=== PATIENT | female | born 1980 | race African-American/Black ===

== ENCOUNTER 2019-06-03 21:03 | Inpatient (IN) | payer MEDICAID ==
[~2019-06-03] VITALS: Ht 172.7 cm; Wt 54.9 kg
[~2019-06-03 21:03] MED LIST: KEPRA PO; PHEN100C4 PO
[2019-06-03] MEDS ORDERED: ONDANSETRON 4MG ODT PO ONE (23:15)
[2019-06-03] MEDS ORDERED: ACETAMINOPHEN 325MG TABLET PO ONE (23:15)
[2019-06-04] MEDS ORDERED: METOCLOPRAMIDE HCL 10MG/2ML VIAL IV ONE (00:15)
[2019-06-04] MEDS ORDERED: SODIUM CHLORIDE 0.9% 1,000 ML IV ONE ×2 (00:15→01:45)
[2019-06-04 00:19] LABS: HEMATOCRIT. 49.7 % (36.0-48.0); HEMOGLOBIN. 15.8 g/dL (12.0-16.0); MEAN CORPUSCULAR HEMOGLOBIN 35.5 pg (28.0-32.0); MEAN CORPUSCULAR VOLUME 111.5 fL (81.0-99.0); MEAN PLATELET VOLUME 8.8 fl (7.4-10.4); PLATELET 297 x1000/uL (130-400); RED BLOOD CELL COUNT 4.46 mill/uL (4.2-5.4); RED CELL DISTRIBUTION WIDTH 15.8 % (11.6-14.6)
[2019-06-04 00:26] LABS: HCG SCREEN NEGATIVE
[2019-06-04 00:28] LABS: CHLORIDE 103 mEq/L (98-107)
[2019-06-04 01:18] LABS: PLATELET ESTIMATE NORMAL
[2019-06-04 01:44] LABS: CLARITY URINE CLEAR (CLEAR); COLOR URINE YELLOW (YELLOW); KETONES URINE 4+ (NEGATIVE); LEUKOCYTE ESTERASE URINE NEGATIVE (NEGATIVE); NITRITE URINE NEGATIVE (NEGATIVE); OCCULT BLOOD URINE 1+ (NEGATIVE); PROTEIN URINE 3+ (NEGATIVE); SPECIFIC GRAVITY URINE 1.018 (1.005-1.030); UROBILINOGEN URINE 0.2 E.U./dL (0.2-1.0)
[2019-06-04] MEDS ORDERED: PHENYTOIN SODIUM EXTENDED 100MG CAPSULE PO ONE (01:45)
[2019-06-04] MEDS ORDERED: LEVETIRACETAM 500MG PREMIX 100 ML IV ONE ×2 (02:15)
[2019-06-04 02:33] LABS: CHLORIDE 102 mEq/L (98-107)
[2019-06-04 02:40] LABS: BETA HYDROXYBUTYRATE 7.9 mMol/L (0.0-0.3)
[2019-06-04] MEDS ORDERED: IOHEXOL-300 100 ML BOTTLE ONE (07:01)
[2019-06-04 08:01] LABS: BG BASE EXCESS -15.7 mmol/L (-2.0-2.0); BG CARBOXYHEMOGLOBIN 0.6 % (0.5-1.5); BG DEOXYHEMOGLOBIN 1.7 % (0.0-5.0); BG FRACTION INSPIRED OXYGEN 21; BG HCO3 ACT 9.2 mmol/L (22.0-26.0); BG METHEMOGLOBIN 0.3 % (0.0-1.5); BG OXYGEN SATURATION 98.3 % (92.0-98.5); BG OXYHEMOGLOBIN 97.4 % (94.0-97.0); BG PCO2 20.8 mmHg (35.0-45.0); BG PH 7.262 (7.350-7.450); BG PO2 113.6 mmHg (75.0-100.0); BG SAMPLE SITE RIGHT RADIAL; BG TOTAL HEMOGLOBIN 13.5 g/dL (12.0-18.0); BG VENT MODE ROOM AIR
[2019-06-04] MEDS ORDERED: SODIUM CHLORIDE 0.9% 1,000 ML IV SCH (09:22)
[2019-06-04] MEDS ORDERED: ONDANSETRON HCL 4MG/2ML INJ IV PRN (09:30)
[2019-06-04] MEDS ORDERED: CLONIDINE 0.1MG TABLET PO PRN (09:30)
[2019-06-04] MEDS ORDERED: IPRATROPIUM/ALBUTEROL 0.5-3(2.5)MG/3ML NEB HHN PRN (09:30)
[2019-06-04] MEDS ORDERED: DIPHENHYDRAMINE 50MG/ML VIAL IV PRN (09:30)
[2019-06-04] MEDS ORDERED: SODIUM BICARBONATE 8.4% 1 MEQ/ML 50ML SYR IV STA (11:00)
[2019-06-04] MEDS: SODIUM BICARBONATE 100 MEQ in SODIUM CHLORIDE 0.45% 1,000 ML IV SCH ×2 (12:30→20:48)
[2019-06-04 15:08] LABS: CREATINE KINASE MB FRACTION 1.9 ng/mL (0.5-3.6)
[2019-06-04 17:28] VITALS: BP 141/102
[2019-06-04 17:38] LABS: BG BASE EXCESS -6.9 mmol/L (-2.0-2.0); BG DEOXYHEMOGLOBIN 1.5 % (0.0-5.0); BG FRACTION INSPIRED OXYGEN 21; BG HCO3 ACT 16.2 mmol/L (22.0-26.0); BG METHEMOGLOBIN 0.2 % (0.0-1.5); BG OXYGEN SATURATION 98.5 % (92.0-98.5); BG OXYHEMOGLOBIN 97.3 % (94.0-97.0); BG PCO2 26.7 mmHg (35.0-45.0); BG PH 7.401 (7.350-7.450); BG PO2 105.2 mmHg (75.0-100.0); BG SAMPLE SITE RIGHT RADIAL; BG TOTAL HEMOGLOBIN 13.9 g/dL (12.0-18.0); BG VENT MODE ROOM AIR
[2019-06-04 18:00] VITALS: BP 141/101
[2019-06-04 18:13] VITALS: BP 141/101
[2019-06-04] MEDS ORDERED: KEPP500 PO (18:26)
[2019-06-04] MEDS: CITRIC ACID/SODIUM CITRATE SOLN 30ML UDC PO SCH (18:36)
[2019-06-04] MEDS: ENOXAPARIN 40MG/0.4ML SYR SUBCUT SCH (18:38)
[2019-06-04 19:35] LABS: CHLORIDE 105 mEq/L (98-107)
[2019-06-04 23:32] LABS: CREATINE KINASE MB FRACTION 1.3 ng/mL (0.5-3.6)
[2019-06-05] MEDS: LEVETIRACETAM 500MG PREMIX 100 ML IV SCH ×3 (00:57→21:50)
[2019-06-05] MEDS: CHLORDIAZEPOXIDE 25MG CAPSULE PO SCH ×4 (00:57→21:50)
[2019-06-05 06:37] LABS: BASOPHILS % 0.4 % (0.0-2.0); EOSINOPHILS % 0.2 % (0.0-5.0); HEMATOCRIT. 33.7 % (36.0-48.0); HEMOGLOBIN. 11.7 g/dL (12.0-16.0); LYMPHOCYTES % 28.2 % (20.0-50.0); MEAN CORPUSCULAR HEMOGLOBIN 36.2 pg (28.0-32.0); MEAN CORPUSCULAR VOLUME 104.6 fL (81.0-99.0); MONOCYTES % 11.2 % (2.0-8.0); PLATELET 196 x1000/uL (130-400); RED BLOOD CELL COUNT 3.22 mill/uL (4.2-5.4); RED CELL DISTRIBUTION WIDTH 15.2 % (11.6-14.6)
[2019-06-05 06:43] LABS: CHLORIDE 104 mEq/L (98-107)
[2019-06-05 07:06] LABS: LDL CHOLESTEROL 123 mg/dL (5-100)
[2019-06-05 07:08] LABS: HDL CHOLESTEROL 66 mg/dL (40-59)
[2019-06-05] MEDS ORDERED: POTASSIUM CHLORIDE 20MEQ TABLET SR PO NR (07:30)
[2019-06-05 08:00] VITALS: BP 135/100
[2019-06-05] MEDS: PHENYTOIN SODIUM EXTENDED 100MG CAPSULE PO SCH (08:35)
[2019-06-05] MEDS: CITRIC ACID/SODIUM CITRATE SOLN 30ML UDC PO SCH ×3 (08:35→17:18)
[2019-06-05] MEDS: SODIUM CHLORIDE 0.45% 1,000 ML IV SCH (08:40)
[2019-06-05 12:00] VITALS: BP 112/87
[2019-06-05 16:00] VITALS: BP 120/79
[2019-06-05] MEDS: ENOXAPARIN 40MG/0.4ML SYR SUBCUT SCH (17:18)
[2019-06-05 20:00] VITALS: BP 127/94
[2019-06-06] VITALS: BP 107/84
[2019-06-06 04:00] VITALS: BP 110/88
[2019-06-06] MEDS: CHLORDIAZEPOXIDE 25MG CAPSULE PO SCH ×2 (06:29→13:18)
[2019-06-06] MEDS: SODIUM CHLORIDE 0.45% 1,000 ML IV SCH (06:35)
[2019-06-06 07:04] LABS: BASOPHILS % 0.4 % (0.0-2.0); EOSINOPHILS % 0.5 % (0.0-5.0); HEMATOCRIT. 35.2 % (36.0-48.0); HEMOGLOBIN. 12.1 g/dL (12.0-16.0); LYMPHOCYTES % 37.8 % (20.0-50.0); MEAN CORPUSCULAR HEMOGLOBIN 36.5 pg (28.0-32.0); MEAN CORPUSCULAR VOLUME 106.1 fL (81.0-99.0); MEAN PLATELET VOLUME 8.9 fl (7.4-10.4); MONOCYTES % 13.9 % (2.0-8.0); NEUTROPHILS % 47.4 % (40.0-76.0); PLATELET 212 x1000/uL (130-400); RED BLOOD CELL COUNT 3.31 mill/uL (4.2-5.4); RED CELL DISTRIBUTION WIDTH 15.4 % (11.6-14.6)
[2019-06-06 07:10] LABS: CHLORIDE 105 mEq/L (98-107)
[2019-06-06 08:00] VITALS: BP 114/89
[2019-06-06] MEDS ORDERED: POTASSIUM CHLORIDE 20MEQ TABLET SR PO ONE (08:30)
[2019-06-06] MEDS: PHENYTOIN SODIUM EXTENDED 100MG CAPSULE PO SCH (08:58)
[2019-06-06] MEDS: CITRIC ACID/SODIUM CITRATE SOLN 30ML UDC PO SCH ×3 (08:58→16:47)
[2019-06-06] MEDS: LEVETIRACETAM 500MG PREMIX 100 ML IV SCH (08:58)
[2019-06-06] MEDS ORDERED: POTASSIUM CHLORIDE INJ 40 MEQ in DEXT 5% WATER 250 ML IV ONE (09:00)
[2019-06-06 12:00] VITALS: BP 117/90
[2019-06-06 16:00] VITALS: BP 110/87
[2019-06-06 17:54] VITALS: BP 116/87
[2019-06-06] MEDS ORDERED: POTASSIUM CHLORIDE 20MEQ TABLET SR PO NR (18:00)
== END 2019-06-06 19:00 | disposition home or self-care (01) | DRG 249 ==
LOC: ER 21:03 → 7WST 06-04 06:59 → CANRESERV 06-04 14:53 → ENRESERV 06-04 14:53
PROVIDERS: ADMIT Internal Medicine; ATTEND Internal Medicine
DX: A08.4 Viral intestinal infection, unspecified (principal); E87.2 Acidosis; E87.1 Hypo-osmolality and hyponatremia; E87.5 Hyperkalemia; F12.90 Cannabis use, unspecified, uncomplicated; F17.210 Nicotine dependence, cigarettes, uncomplicated; G40.909 Epilepsy, unspecified, not intractable, without status epilepticus; F10.229 Alcohol dependence with intoxication, unspecified; Y90.9 Presence of alcohol in blood, level not specified; Z79.899 Other long term (current) drug therapy
CPT/HCPCS: 36415; 36600; 74177; 76700; 80048; 80053; 80061; 80185; 81003; 82010; 82375; 82550; 82553; 82805; 83605; 84132; 84443; 84703; 85025; 93970; J1650; J1953; J2765; J3480; J3490; J7030; J7060; Q0162; Q9967

== ENCOUNTER 2020-05-22 11:39 | Emergency (ER) | payer MEDICAID ==
[~2020-05-22] VITALS: Ht 170.2 cm; Wt 60.0 kg
[~2020-05-22 11:39] MED LIST changes: +KEPP500 PO; -KEPRA PO
[2020-05-22] MEDS ORDERED: LEVETIRACETAM 1000MG PREMIX 100 ML IV ONE (12:30)
[2020-05-22 12:53] LABS: BASOPHILS % 0.4 % (0.0-2.0); EOSINOPHILS % 0.2 % (0.0-5.0); HEMATOCRIT. 32.7 % (36.0-48.0); HEMOGLOBIN. 10.9 g/dL (12.0-16.0); LYMPHOCYTES % 23.4 % (20.0-50.0); MEAN CORPUSCULAR HEMOGLOBIN 32.7 pg (28.0-32.0); MEAN CORPUSCULAR VOLUME 97.8 fL (81.0-99.0); MONOCYTES % 6.6 % (2.0-8.0); NEUTROPHILS % 69.4 % (40.0-76.0); PLATELET 167 x1000/uL (130-400); RED BLOOD CELL COUNT 3.35 mill/uL (4.2-5.4); RED CELL DISTRIBUTION WIDTH 18.2 % (11.6-14.6)
[2020-05-22 13:04] LABS: CHLORIDE 102 mEq/L (98-107)
[2020-05-22 13:08] LABS: ETHANOL BLOOD < 10 mg/dL
[2020-05-22 15:07] VITALS: BP 110/83
== END 2020-05-22 15:08 | disposition home or self-care (01) ==
LOC: ER 11:43
DX: G40.909 Epilepsy, unspecified, not intractable, without status epilepticus (principal); Z91.14 Patient's other noncompliance with medication regimen; R03.0 Elevated blood-pressure reading, without diagnosis of hypertension; D64.9 Anemia, unspecified; E87.6 Hypokalemia
CPT/HCPCS: 36415; 80053; 80185; 80320; 85025; 93005; 96365; 99284; J1953; Z7610; G0480

== ENCOUNTER 2021-03-31 10:53 | Emergency (ER) | payer MEDICAID ==
[~2021-03-31] VITALS: Ht 165.1 cm; Wt 66.0 kg
[~2021-03-31 10:53] MED LIST changes: +FAMO20TA8 PO; +FOLI-43 PO; +L25 PO; +THIA100T72 PO; +TOPUD PO
[2021-03-31] MEDS ORDERED: LEVETIRACETAM 1000MG PREMIX 100 ML IV ONE (11:15)
[2021-03-31 11:25] LABS: BASOPHILS % 0.8 % (0.0-2.0); EOSINOPHILS % 0.2 % (0.0-5.0); HEMATOCRIT. 34.3 % (36.0-48.0); HEMOGLOBIN. 11.1 g/dL (12.0-16.0); MEAN CORPUSCULAR HEMOGLOBIN 34.4 pg (28.0-32.0); MEAN CORPUSCULAR VOLUME 106.1 fL (81.0-99.0); MEAN PLATELET VOLUME 7.8 fl (7.4-10.4); PLATELET 508 x1000/uL (130-400); RED BLOOD CELL COUNT 3.23 mill/uL (4.2-5.4)
[2021-03-31 11:33] LABS: CHLORIDE 101 mEq/L (98-107)
[2021-03-31] MEDS ORDERED: LORAZEPAM 2MG/ML CPJ IV ONE (13:30)
[2021-03-31] MEDS ORDERED: ACETAMINOPHEN 325MG TABLET PO ONE (14:30)
[2021-03-31 15:35] VITALS: BP 145/89
[2021-03-31] MEDS ORDERED: KEPP500 PO (15:39)
== END 2021-03-31 16:48 | disposition home or self-care (01) ==
LOC: ER 10:53
DX: R56.9 Unspecified convulsions (principal); Z91.14 Patient's other noncompliance with medication regimen; F12.10 Cannabis abuse, uncomplicated; Z79.899 Other long term (current) drug therapy
CPT/HCPCS: 36415; 80053; 85025; 93005; 96374; 99284; J1953

== ENCOUNTER 2021-06-27 09:01 | Inpatient (IN) | payer MEDICAID ==
[~2021-06-27] VITALS: Ht 167.6 cm; Wt 58.5 kg
[2021-06-27] VITALS (17 sets, daily range): BP systolic 122–180; BP diastolic 70–127
[2021-06-27] MEDS ORDERED: ACETAMINOPHEN 325MG TABLET PO STA (09:34)
[2021-06-27] MEDS ORDERED: SODIUM CHLORIDE 0.9% 1,000 ML IV ONE (09:45)
[2021-06-27 10:15] LABS: CHLORIDE 103 mEq/L (98-107)
[2021-06-27 10:20] LABS: ETHANOL BLOOD 15 mg/dL
[2021-06-27 10:21] LABS: BASOPHILS % 0.6 % (0.0-2.0); EOSINOPHILS % 0.4 % (0.0-5.0); HEMATOCRIT. 32.7 % (36.0-48.0); HEMOGLOBIN. 11.4 g/dL (12.0-16.0); LYMPHOCYTES % 23.5 % (20.0-50.0); MEAN CORPUSCULAR HEMOGLOBIN 36.8 pg (28.0-32.0); MEAN CORPUSCULAR VOLUME 105.6 fL (81.0-99.0); MONOCYTES % 9.9 % (2.0-8.0); NEUTROPHILS % 65.6 % (40.0-76.0); PLATELET 286 x1000/uL (130-400); RED BLOOD CELL COUNT 3.09 mill/uL (4.2-5.4); RED CELL DISTRIBUTION WIDTH 20.3 % (11.6-14.6)
[2021-06-27 10:30] LABS: HCG SCREEN NEGATIVE
[2021-06-27 10:50] LABS: CARBAMAZEPINE < 0.5 ug/mL (4-12); PHENOBARBITAL < 2.1 ug/mL (15.0-40.0); VALPROIC ACID < 3.0 ug/mL (50-100)
[2021-06-27] MEDS ORDERED: PHENYTOIN SODIUM 1,000 MG in SODIUM CHLORIDE 0.9% 100 ML IV ONE (11:00)
[2021-06-27] MEDS: DEXT 5%/LACTATED RINGERS 1,000 ML IV SCH ×2 (13:00→17:33)
[2021-06-27] MEDS ORDERED: LEVETIRACETAM 500MG PREMIX 100 ML IV SCH (13:00)
[2021-06-27] MEDS ORDERED: LEVETIRACETAM 500 MG in SODIUM CHLORIDE 0.9% 100 ML IV SCH (13:00)
[2021-06-27] MEDS: ONDANSETRON HCL 4MG/2ML INJ IV PRN (14:01)
[2021-06-27 15:36] LABS: CLARITY URINE CLOUDY (CLEAR); COLOR URINE YELLOW (YELLOW); KETONES URINE 2+ (NEGATIVE); LEUKOCYTE ESTERASE URINE NEGATIVE (NEGATIVE); NITRITE URINE POSITIVE (NEGATIVE); OCCULT BLOOD URINE NEGATIVE (NEGATIVE); PH URINE 6.5 (4.5-8.0); PROTEIN URINE 1+ (NEGATIVE); SPECIFIC GRAVITY URINE 1.022 (1.005-1.030)
[2021-06-27 16:47] LABS: *AMPHETAMINES SCREEN URINE NEGATIVE (NEGATIVE)
[2021-06-27 16:48] LABS: *BENZODIAZEPINES SCREEN URINE NEGATIVE (NEGATIVE); *COCAINE SCREEN URINE NEGATIVE (NEGATIVE); OPIATES URINE SCREEN NEGATIVE (NEGATIVE); PHENCYCLIDINE URINE SCREEN NEGATIVE (NEGATIVE)
[2021-06-27 16:49] LABS: METHADONE URINE SCREEN NEGATIVE (NEGATIVE)
[2021-06-27] MEDS ORDERED: NALOXONE HCL 0.4MG/ML VIAL IV PRN (17:00)
[2021-06-27] MEDS ORDERED: NICARDIPINE 100 MG in SODIUM CHLORIDE 0.9% 60 ML IV PRN (17:00)
[2021-06-27] MEDS: MORPHINE SULFATE 2 MG/ML CPJ (NOT FOR IM USE) IV PRN (17:32)
[2021-06-27] MEDS ORDERED: CEFTRIAXONE 1 G PREMIX 50 ML IV SCH (18:00)
[2021-06-27 18:11] LABS: PROTHROMBIN TIME 10.9 sec (9.6-11.0)
[2021-06-27] MEDS ORDERED: POTASSIUM CHLORIDE INJ 40 MEQ in DEXT 5% WATER 250 ML IV ONE (18:15)
[2021-06-27] MEDS: CEFTRIAXONE 1,000 MG in DEXTROSE 5% WATER 50 ML IV SCH (18:38)
[2021-06-27] MEDS: KCL 20MEQ/100ML X 2 FOR TOTAL KCL 40MEQ/200ML IV SCH ×2 (20:16→20:17)
[2021-06-27] MEDS: LEVETIRACETAM 500MG PREMIX 100 ML IV SCH (20:19)
[2021-06-27 21:03] LABS: *BARBITURATES SCREEN URINE NEGATIVE (NEGATIVE); CANNABINOID URINE SCREEN PRESUMTIVE POSITIVE (NEGATIVE)
[2021-06-27] MEDS: PHENYTOIN SODIUM 100MG/2ML VIAL IV SCH (23:19)
[2021-06-28] VITALS (36 sets, daily range): BP systolic 101–150; BP diastolic 39–104
[2021-06-28 05:29] LABS: BASOPHILS % 0.2 % (0.0-2.0); EOSINOPHILS % 0.1 % (0.0-5.0); HEMATOCRIT. 36.6 % (36.0-48.0); HEMOGLOBIN. 12.4 g/dL (12.0-16.0); LYMPHOCYTES % 15.2 % (20.0-50.0); MEAN CORPUSCULAR HEMOGLOBIN 35.8 pg (28.0-32.0); MEAN CORPUSCULAR VOLUME 105.7 fL (81.0-99.0); MEAN PLATELET VOLUME 8.5 fl (7.4-10.4); MONOCYTES % 9.8 % (2.0-8.0); NEUTROPHILS % 74.7 % (40.0-76.0); PLATELET 288 x1000/uL (130-400); RED BLOOD CELL COUNT 3.46 mill/uL (4.2-5.4); RED CELL DISTRIBUTION WIDTH 20.4 % (11.6-14.6)
[2021-06-28 05:37] LABS: CHLORIDE 97 mEq/L (98-107)
[2021-06-28] MEDS: PHENYTOIN SODIUM 100MG/2ML VIAL IV SCH (05:38)
[2021-06-28] MEDS: LEVETIRACETAM 500MG PREMIX 100 ML IV SCH ×2 (09:44→20:47)
[2021-06-28] MEDS: MORPHINE SULFATE 2 MG/ML CPJ (NOT FOR IM USE) IV PRN ×3 (09:45→18:04)
[2021-06-28] MEDS ORDERED: POTASSIUM CHLORIDE 20MEQ TABLET SR PO NR (10:45)
[2021-06-28] MEDS: AMLODIPINE 10MG TABLET PO SCH (11:51)
[2021-06-28] MEDS: ONDANSETRON HCL 4MG/2ML INJ IV PRN (12:03)
[2021-06-28] MEDS: PHENYTOIN SODIUM EXTENDED 100MG CAPSULE PO SCH ×2 (13:49→22:06)
[2021-06-28] MEDS: CEFTRIAXONE 1,000 MG in DEXTROSE 5% WATER 50 ML IV SCH (18:03)
[2021-06-28] MEDS ORDERED: GADOTERATE MEGLUMINE 5 MMOL/10 ML VIAL IV ONE (19:50)
[2021-06-28] MEDS: DEXT 5%/LACTATED RINGERS 1,000 ML IV SCH (20:48)
[2021-06-29] VITALS (16 sets, daily range): BP systolic 111–159; BP diastolic 65–98
[2021-06-29] MEDS: MORPHINE SULFATE 2 MG/ML CPJ (NOT FOR IM USE) IV PRN ×2 (03:18→10:04)
[2021-06-29 06:00] LABS: CHLORIDE 99 mEq/L (98-107)
[2021-06-29] MEDS: PHENYTOIN SODIUM EXTENDED 100MG CAPSULE PO SCH ×3 (06:24→21:09)
[2021-06-29 08:37] LABS: BASOPHILS % 0.3 % (0.0-2.0); EOSINOPHILS % 0.1 % (0.0-5.0); HEMATOCRIT. 37.2 % (36.0-48.0); HEMOGLOBIN. 12.5 g/dL (12.0-16.0); LYMPHOCYTES % 18.1 % (20.0-50.0); MEAN CORPUSCULAR HEMOGLOBIN 36.1 pg (28.0-32.0); MEAN CORPUSCULAR VOLUME 107.2 fL (81.0-99.0); MEAN PLATELET VOLUME 9.1 fl (7.4-10.4); MONOCYTES % 7.4 % (2.0-8.0); NEUTROPHILS % 74.1 % (40.0-76.0); PLATELET 256 x1000/uL (130-400); RED BLOOD CELL COUNT 3.47 mill/uL (4.2-5.4); RED CELL DISTRIBUTION WIDTH 20.3 % (11.6-14.6)
[2021-06-29] MEDS: LEVETIRACETAM 500MG PREMIX 100 ML IV SCH ×2 (09:57→21:09)
[2021-06-29] MEDS: AMLODIPINE 10MG TABLET PO SCH (09:57)
[2021-06-29] MEDS ORDERED: CLONIDINE 0.1MG TABLET PO PRN (11:00)
[2021-06-29] MEDS ORDERED: POTASSIUM CHLORIDE 20MEQ TABLET SR PO SCH (11:00)
[2021-06-29] MEDS: MULTIVITAMINS,THER W-MINERALS TABLET PO SCH (11:58)
[2021-06-29] MEDS: THIAMINE HCL 100MG TABLET PO SCH (11:58)
[2021-06-29] MEDS: FOLIC ACID 1MG TABLET PO SCH (11:58)
[2021-06-29] MEDS: DOCUSATE SODIUM 250MG CAPSULE PO SCH (12:02)
[2021-06-29] MEDS: ACETAMINOPHEN 325MG TABLET PO PRN (16:25)
[2021-06-29] MEDS: ONDANSETRON HCL 4MG/2ML INJ IV PRN (16:26)
[2021-06-29] MEDS: CEFTRIAXONE 1,000 MG in DEXTROSE 5% WATER 50 ML IV SCH (21:08)
[2021-06-30] VITALS: BP 139/87
[2021-06-30] MEDS: PHENYTOIN SODIUM EXTENDED 100MG CAPSULE PO SCH ×2 (05:54→15:02)
[2021-06-30 08:00] VITALS: BP 126/96
[2021-06-30] MEDS: DOCUSATE SODIUM 250MG CAPSULE PO SCH (08:38)
[2021-06-30] MEDS: MULTIVITAMINS,THER W-MINERALS TABLET PO SCH (08:38)
[2021-06-30] MEDS: FOLIC ACID 1MG TABLET PO SCH (08:38)
[2021-06-30] MEDS: ONDANSETRON HCL 4MG/2ML INJ IV PRN (08:38)
[2021-06-30] MEDS: THIAMINE HCL 100MG TABLET PO SCH (08:38)
[2021-06-30] MEDS: AMLODIPINE 10MG TABLET PO SCH (08:39)
[2021-06-30] MEDS: MORPHINE SULFATE 2 MG/ML CPJ (NOT FOR IM USE) IV PRN (08:42)
[2021-06-30] MEDS: LEVETIRACETAM 500MG PREMIX 100 ML IV SCH (08:48)
[2021-06-30 12:00] VITALS: BP 139/95
[2021-06-30] MEDS ORDERED: KEPP500 PO (12:29)
[2021-06-30] MEDS ORDERED: LOSA50TA41 MT (12:29)
[2021-06-30] MEDS ORDERED: AMLO10TA80 PO (12:29)
[2021-06-30] MEDS: ACETAMINOPHEN 325MG TABLET PO PRN (15:51)
[2021-06-30 16:37] VITALS: BP 129/90
[2021-06-30] MEDS ORDERED: LEVETIRACETAM 500MG TABLET PO SCH (21:00)
== END 2021-06-30 18:00 | disposition home or self-care (01) | DRG 55 ==
LOC: ER 09:09 → MICUNO 12:06 → 6EST 06-29 11:22
PROVIDERS: ADMIT Internal Medicine; ATTEND Internal Medicine
DX: S06.5X0A Traumatic subdural hemorrhage without loss of consciousness, initial encounter (principal); E87.6 Hypokalemia; F10.10 Alcohol abuse, uncomplicated; G40.909 Epilepsy, unspecified, not intractable, without status epilepticus; I16.0 Hypertensive urgency; F12.90 Cannabis use, unspecified, uncomplicated; F17.210 Nicotine dependence, cigarettes, uncomplicated; N30.00 Acute cystitis without hematuria; Z20.822 Contact with and (suspected) exposure to COVID-19; W18.39XA Other fall on same level, initial encounter; Y93.89 Activity, other specified; Z91.14 Patient's other noncompliance with medication regimen; Y92.89 Other specified places as the place of occurrence of the external cause; Y99.8 Other external cause status
CPT/HCPCS: 36415; 70553; 80048; 80053; 80156; 80165; 80184; 80185; 80305; 80320; 81003; 82962; 84703; 85025; 86850; 86900; 87426; 92610; 93005; 97162; 97166; 99291; A9577; J0696; J1165; J1953; J2270; J2405; J3480; J3490; J7030; J7050; J7060; G0480

== ENCOUNTER 2021-11-11 19:41 | Emergency (ER) | payer MEDICAID ==
[~2021-11-11] VITALS: Ht 165.1 cm; Wt 75.0 kg
[~2021-11-11 19:41] MED LIST changes: +AMLO10TA80 PO; +LOSA50TA41 MT
[2021-11-11] MEDS ORDERED: SODIUM CHLORIDE 0.9% 1,000 ML IV ONE ×2 (22:15)
[2021-11-11] MEDS ORDERED: LEVETIRACETAM 500MG PREMIX 100 ML IV ONE ×2 (22:15)
[2021-11-11 22:54] LABS: BASOPHILS % 0.7 % (0.0-2.0); EOSINOPHILS % 0.7 % (0.0-5.0); HEMATOCRIT. 38.1 % (36.0-48.0); HEMOGLOBIN. 12.6 g/dL (12.0-16.0); LYMPHOCYTES % 41.3 % (20.0-50.0); MEAN CORPUSCULAR HEMOGLOBIN 35.3 pg (28.0-32.0); MEAN CORPUSCULAR VOLUME 106.7 fL (81.0-99.0); MEAN PLATELET VOLUME 9.3 fl (7.4-10.4); MONOCYTES % 11.8 % (2.0-8.0); NEUTROPHILS % 45.5 % (40.0-76.0); PLATELET 275 x1000/uL (130-400); RED BLOOD CELL COUNT 3.57 mill/uL (4.2-5.4); RED CELL DISTRIBUTION WIDTH 14.3 % (11.6-14.6)
[2021-11-11 23:01] LABS: CHLORIDE 102 mEq/L (98-107)
[2021-11-11 23:09] LABS: ETHANOL BLOOD 259 mg/dL
[2021-11-11 23:10] LABS: HCG SCREEN NEGATIVE
[2021-11-12 00:50] VITALS: BP 119/85
[2021-11-12] MEDS ORDERED: LEVE750T4 MT (00:50)
== END 2021-11-12 01:05 | disposition home or self-care (01) ==
LOC: ER 19:41
DX: R56.9 Unspecified convulsions (principal); F10.129 Alcohol abuse with intoxication, unspecified; Y90.9 Presence of alcohol in blood, level not specified
CPT/HCPCS: 36415; 80053; 80185; 80320; 84703; 85025; 96365; 99284; J1953; J7030; G0480

== ENCOUNTER 2022-04-24 04:25 | Inpatient (IN) | payer MEDICAID, OTHER ==
[~2022-04-24] VITALS: Ht 170.2 cm; Wt 61.2 kg
[~2022-04-24 04:25] MED LIST changes: +LEVE750T4 MT
[2022-04-24] MEDS ORDERED: LEVETIRACETAM 1000MG PREMIX 100 ML IV ONE (05:30)
[2022-04-24 05:43] LABS: HEMATOCRIT. 48.7 % (36.0-48.0); HEMOGLOBIN. 15.3 g/dL (12.0-16.0); MEAN CORPUSCULAR HEMOGLOBIN 33.9 pg (28.0-32.0); MEAN CORPUSCULAR VOLUME 107.8 fL (81.0-99.0); PLATELET 222 x1000/uL (130-400); RED BLOOD CELL COUNT 4.52 mill/uL (4.2-5.4); RED CELL DISTRIBUTION WIDTH 15.1 % (11.6-14.6)
[2022-04-24 05:50] LABS: CHLORIDE 96 mEq/L (98-107)
[2022-04-24 05:59] LABS: ETHANOL BLOOD < 10 mg/dL
[2022-04-24 06:19] LABS: HCG SCREEN NEGATIVE
[2022-04-24] MEDS ORDERED: PHENYTOIN SODIUM EXTENDED 100MG CAPSULE PO ONE (06:45)
[2022-04-24] MEDS ORDERED: KETOROLAC 30MG/ML VIAL IV ONE (07:15)
[2022-04-24] MEDS ORDERED: PHEN100C4 PO (07:49)
[2022-04-24] MEDS ORDERED: LEVE750T4 PO (07:49)
[2022-04-24] MEDS ORDERED: METOCLOPRAMIDE HCL 10MG/2ML VIAL IV ONE (09:15)
[2022-04-24 10:53] LABS: NUCLEATED RED BLOOD CELLS 1 /100 WBC; PLATELET ESTIMATE NORMAL
[2022-04-24] MEDS: HYDROCODONE/ACETAMINOPHEN 5/325MG TABLET PO PRN ×3 (11:36→22:12)
[2022-04-24 12:00] VITALS: BP 130/95
[2022-04-24 12:28] VITALS: BP 130/95
[2022-04-24] MEDS ORDERED: NALOXONE HCL 0.4MG/ML VIAL IV PRN (13:15)
[2022-04-24 16:00] VITALS: BP 119/92
[2022-04-24 19:42] LABS: CLARITY URINE CLOUDY (CLEAR); COLOR URINE YELLOW (YELLOW); KETONES URINE 3+ (NEGATIVE); LEUKOCYTE ESTERASE URINE NEGATIVE (NEGATIVE); NITRITE URINE NEGATIVE (NEGATIVE); OCCULT BLOOD URINE 1+ (NEGATIVE); PH URINE 5.5 (4.5-8.0); PROTEIN URINE 3+ (NEGATIVE)
[2022-04-24 19:54] LABS: *AMPHETAMINES SCREEN URINE NEGATIVE (NEGATIVE); *BARBITURATES SCREEN URINE NEGATIVE (NEGATIVE); *BENZODIAZEPINES SCREEN URINE NEGATIVE (NEGATIVE); *COCAINE SCREEN URINE NEGATIVE (NEGATIVE); METHADONE URINE SCREEN NEGATIVE (NEGATIVE); PHENCYCLIDINE URINE SCREEN NEGATIVE (NEGATIVE)
[2022-04-24 19:58] LABS: CANNABINOID URINE SCREEN PRESUMTIVE POSITIVE (NEGATIVE); OPIATES URINE SCREEN PRESUMTIVE POSITIVE (NEGATIVE)
[2022-04-24 20:00] VITALS: BP 134/96
[2022-04-24] MEDS: LEVETIRACETAM 500MG PREMIX 100 ML IV SCH (22:11)
[2022-04-24] MEDS: ONDANSETRON HCL 4MG/2ML INJ IV PRN (23:59)
[2022-04-25] VITALS: BP 117/76
[2022-04-25] MEDS ORDERED: DEXT 5%/0.45% NACL 1000ML 1,000 ML IV ONE
[2022-04-25 04:00] VITALS: BP 120/87
[2022-04-25] MEDS: ONDANSETRON HCL 4MG/2ML INJ IV PRN ×2 (07:10→21:38)
[2022-04-25] MEDS: HYDROCODONE/ACETAMINOPHEN 5/325MG TABLET PO PRN ×3 (07:10→21:38)
[2022-04-25] MEDS: PANTOPRAZOLE SODIUM 40 MG/VIAL IV SCH (09:41)
[2022-04-25] MEDS: LEVETIRACETAM 500MG PREMIX 100 ML IV SCH ×2 (09:41→21:36)
[2022-04-25 20:00] VITALS: BP 116/80
[2022-04-26] VITALS: BP 135/87
[2022-04-26 04:00] VITALS: BP 123/89
[2022-04-26 06:36] LABS: BASOPHILS % 0.2 % (0.0-2.0); EOSINOPHILS % 0.1 % (0.0-5.0); HEMATOCRIT. 43.9 % (36.0-48.0); HEMOGLOBIN. 14.7 g/dL (12.0-16.0); LYMPHOCYTES % 24.7 % (20.0-50.0); MEAN CORPUSCULAR VOLUME 101.4 fL (81.0-99.0); MEAN PLATELET VOLUME 9.7 fl (7.4-10.4); MONOCYTES % 11.4 % (2.0-8.0); NEUTROPHILS % 63.6 % (40.0-76.0); PLATELET 172 x1000/uL (130-400); RED BLOOD CELL COUNT 4.33 mill/uL (4.2-5.4); RED CELL DISTRIBUTION WIDTH 14.2 % (11.6-14.6)
[2022-04-26 07:12] LABS: CHLORIDE 97 mEq/L (98-107)
[2022-04-26 08:00] VITALS: BP 120/80
[2022-04-26] MEDS: PANTOPRAZOLE SODIUM 40 MG/VIAL IV SCH (08:42)
[2022-04-26] MEDS: LEVETIRACETAM 500MG PREMIX 100 ML IV SCH ×2 (08:42→21:35)
[2022-04-26 11:33] VITALS: BP 134/84
[2022-04-26] MEDS ORDERED: POTASSIUM CHLORIDE 20MEQ TABLET SR PO NR (13:15)
[2022-04-26] MEDS ORDERED: NALOXONE HCL 0.4MG/ML VIAL IV PRN (13:30)
[2022-04-26] MEDS ORDERED: METRONIDAZOLE 500MG TABLET PO NR (13:45)
[2022-04-26] MEDS ORDERED: METRONIDAZOLE 250MG TABLET PO NR (13:45)
[2022-04-26 15:30] VITALS: BP 132/85
[2022-04-26 20:00] VITALS: BP 127/93
[2022-04-26] MEDS: HYDROCODONE/ACETAMINOPHEN 5/325MG TABLET PO PRN (21:36)
[2022-04-27] VITALS: BP 113/86
[2022-04-27 04:00] VITALS: BP 135/90
[2022-04-27 08:00] VITALS: BP 130/95
[2022-04-27 08:47] LABS: BASOPHILS % 0.5 % (0.0-2.0); EOSINOPHILS % 0.3 % (0.0-5.0); HEMATOCRIT. 39.6 % (36.0-48.0); HEMOGLOBIN. 13.4 g/dL (12.0-16.0); LYMPHOCYTES % 31.2 % (20.0-50.0); MEAN CORPUSCULAR VOLUME 100.2 fL (81.0-99.0); MEAN PLATELET VOLUME 9.5 fl (7.4-10.4); MONOCYTES % 12.1 % (2.0-8.0); NEUTROPHILS % 55.9 % (40.0-76.0); PLATELET 173 x1000/uL (130-400); RED BLOOD CELL COUNT 3.95 mill/uL (4.2-5.4); RED CELL DISTRIBUTION WIDTH 14.1 % (11.6-14.6)
[2022-04-27 09:09] LABS: CHLORIDE 93 mEq/L (98-107)
[2022-04-27] MEDS: LEVETIRACETAM 500MG PREMIX 100 ML IV SCH (09:42)
[2022-04-27] MEDS: PANTOPRAZOLE SODIUM 40 MG/VIAL IV SCH (09:42)
[2022-04-27] MEDS ORDERED: POTASSIUM CHLORIDE 20MEQ TABLET SR PO SCH ×2 (09:45→10:15)
[2022-04-27] MEDS: HYDROCODONE/ACETAMINOPHEN 5/325MG TABLET PO PRN (10:02)
[2022-04-27] MEDS ORDERED: POTASSIUM CHLORIDE INJ 40 MEQ in DEXT 5% WATER 500 ML IV ONE (11:00)
[2022-04-27 12:00] VITALS: BP 115/80
[2022-04-27 16:00] VITALS: BP 127/85
[2022-04-27 16:39] VITALS: BP 130/78
== END 2022-04-27 17:27 | disposition home or self-care (01) | DRG 53 ==
LOC: ER 04:38 → 6EST 10:22
PROVIDERS: ADMIT Internal Medicine; ATTEND Internal Medicine
DX: G40.909 Epilepsy, unspecified, not intractable, without status epilepticus (principal); K76.0 Fatty (change of) liver, not elsewhere classified; E87.1 Hypo-osmolality and hyponatremia; D25.9 Leiomyoma of uterus, unspecified; I25.10 Atherosclerotic heart disease of native coronary artery without angina pectoris; R74.01 Elevation of levels of liver transaminase levels; E87.6 Hypokalemia; F17.210 Nicotine dependence, cigarettes, uncomplicated; R13.10 Dysphagia, unspecified
CPT/HCPCS: 36415; 74176; 76700; 80048; 80053; 80076; 80185; 80305; 80320; 81003; 82962; 84703; 85025; 99285; C9113; J1885; J1953; J2405; J2765; J3480; J7060; G0480

== ENCOUNTER 2022-06-12 16:52 | Emergency (ER) | payer MEDICAID ==
[~2022-06-12] VITALS: Ht 167.6 cm; Wt 73.0 kg
[~2022-06-12 16:52] MED LIST changes: +LEVE750T4 PO
[2022-06-12 16:55] VITALS: BP 150/90
[2022-06-12] MEDS ORDERED: LEVETIRACETAM 500MG PREMIX 100 ML IV ONE (17:45)
[2022-06-12 17:59] LABS: BASOPHILS % 0.4 % (0.0-2.0); EOSINOPHILS % 0.1 % (0.0-5.0); HEMOGLOBIN. 12.1 g/dL (12.0-16.0); LYMPHOCYTES % 14.8 % (20.0-50.0); MEAN CORPUSCULAR HEMOGLOBIN 33.7 pg (28.0-32.0); MEAN CORPUSCULAR VOLUME 105.5 fL (81.0-99.0); MONOCYTES % 6.8 % (2.0-8.0); NEUTROPHILS % 77.9 % (40.0-76.0); RED CELL DISTRIBUTION WIDTH 16.7 % (11.6-14.6)
[2022-06-12 18:09] LABS: CHLORIDE 96 mEq/L (98-107)
[2022-06-12 18:13] LABS: HCG SCREEN NEGATIVE
[2022-06-12 18:40] LABS: MEAN PLATELET VOLUME 8.8 fl (7.4-10.4); PLATELET 183 x1000/uL (130-400); PLATELET ESTIMATE NORMAL
[2022-06-12] MEDS ORDERED: POTASSIUM CHLORIDE 20MEQ TABLET SR PO ONE (19:00)
[2022-06-12] MEDS ORDERED: POTASSIUM CHLORIDE 20MEQ TABLET SR PO NR (19:00)
== END 2022-06-12 22:49 | disposition home or self-care (01) ==
LOC: ER 16:52
DX: G40.909 Epilepsy, unspecified, not intractable, without status epilepticus (principal); E87.6 Hypokalemia; F12.10 Cannabis abuse, uncomplicated
CPT/HCPCS: 36415; 80053; 84703; 85025; 96365; 99284; J1953; Z7610

== ENCOUNTER 2023-12-17 21:42 | Emergency (ER) | payer MEDICAID ==
[~2023-12-17] VITALS: Ht 160 cm; Wt 61.0 kg
[~2023-12-17 21:42] MED LIST changes: -AMLO10TA80 PO; -FAMO20TA8 PO; +FOLI-43 MT; -FOLI-43 PO; -KEPP500 PO; -L25 PO; -LEVE750T4 MT; -LEVE750T4 PO; -LOSA50TA41 MT; +MULT-1116 MT; -PHEN100C4 PO; +THIA100T72 MT; -THIA100T72 PO; -TOPUD PO
[2023-12-17 21:49] VITALS: TEMP 97.6; O2SAT 99
[2023-12-17] MEDS ORDERED: KETOROLAC 30MG/ML VIAL IM ONE (22:30)
[2023-12-17 22:53] LABS: BASOPHILS % 0.5 % (0.0-2.0); DIFFERENTIAL COMMENT 0; EOSINOPHILS % 1.5 % (0.0-5.0); HEMATOCRIT. 33.6 % (36.0-48.0); HEMOGLOBIN. 11.1 g/dL (12.0-16.0); MEAN CORPUSCULAR HEMOGLOBIN 35.5 pg (28.0-32.0); MEAN CORPUSCULAR HGB CONC 33.1 g/dL (31.0-37.0); MEAN CORPUSCULAR VOLUME 107.4 fL (81.0-99.0); MONOCYTES % 12.3 % (2.0-8.0); NEUTROPHILS % 55.7 % (40.0-76.0); PLATELET 249 x1000/uL (130-400); RED BLOOD CELL COUNT 3.13 mill/uL (4.2-5.4); RED CELL DISTRIBUTION WIDTH 18.2 % (11.6-14.6); WHITE BLOOD COUNT 5.1 x1000/uL (4.5-11.0)
[2023-12-17 23:02] LABS: CHLORIDE 107 mEq/L (98-107); SODIUM 139 mEq/L (136-145)
[2023-12-17 23:03] LABS: CALCIUM 9.4 mg/dL (8.7-10.4); CARBON DIOXIDE 28 mEq/L (21-32)
[2023-12-17 23:08] LABS: CREATININE 0.6 mg/dL (0.6-1.0); GLUCOSE 77 mg/dL (70-105)
[2023-12-17 23:15] LABS: UREA NITROGEN BLOOD < 5 mg/dL (9-23)
[2023-12-18 00:35] VITALS: O2SAT 96
[2023-12-18 00:39] VITALS: BP 157/76; PULSE 107; RESP 16
[2023-12-18] MEDS: KETOROLAC 30MG/ML VIAL IM NR (00:39)
[2023-12-18] MEDS ORDERED: FOLI-43 MT (00:40)
[2023-12-18] MEDS ORDERED: GABA-532 MT (00:40)
[2023-12-18] MEDS ORDERED: THIA100T72 MT (00:40)
[2023-12-18] MEDS ORDERED: ACET-2708 MT (00:40)
[2023-12-18] MEDS: GABAPENTIN 300MG CAPSULE PO ONE (00:56)
== END 2023-12-18 01:01 | disposition home or self-care (01) ==
LOC: ER 21:42
DX: M79.671 Pain in right foot (principal); M79.672 Pain in left foot; F12.10 Cannabis abuse, uncomplicated; Z79.899 Other long term (current) drug therapy
CPT/HCPCS: 80048; 85025; 36415; 73630; 99284; 96372; J1885; Z7610